=== PATIENT | male | born 1945 | race Caucasian/White ===

== ENCOUNTER 2018-09-22 05:09 | Emergency (ER) | payer OTHER ==
[2018-09-22] MEDS ORDERED: ONDANSETRON 4 MG/2 ML VIAL ONE (05:46)
[2018-09-22] MEDS ORDERED: NA CHLORIDE 0.9% 500 ML ONE (05:46)
[2018-09-22] MEDS ORDERED: MECLIZINE HCL 12.5 MG TAB ONE (05:46)
[2018-09-22] MEDS ORDERED: NA CHLORIDE 0.9% 1,000 ML ONE (05:46)
[2018-09-22 05:57] LABS: Absolute Lymphocytes (CBC) 2.4 K/uL (0.7-4.9); Absolute Monocytes 0.4 K/uL (0.1-1.3); Absolute Neutrophil 5.5 K/uL (1.8-8.0); Basophils % 1.1 % (0-1.3); Eosinophils % 2.5 % (0-4.4); Hematocrit 45.7 % (39.6-49.0); MPV 9.9 fL (7.6-11.3); Monocytes % 4.5 % (3.3-12.3); RBC Red Blood Cell Count 5.16 M/uL (4.33-5.43)
[2018-09-22 06:15] LABS: ALT/SGPT 26 U/L (12-78); AST/SGOT 16 U/L (15-37); Albumin 3.9 g/dL (3.4-5.0); Alkaline Phosphatase 97 U/L (45-117); BUN Blood Urea Nitrogen 14 mg/dL (7-18); Bicarbonate 28 mmol/L (21-32); Bilirubin Direct 0.1 mg/dL (0-0.2); Bilirubin Total 0.4 mg/dL (0.2-1.0); Glucose Level 137 mg/dL (74-106); Lipase 181 U/L (73-393); Magnesium 2.2 mg/dL (1.8-2.4); NT PRO-BNP 29 pg/mL (<125); Potassium 3.7 mmol/L (3.5-5.1); Protein, Total 7.7 g/dL (6.4-8.2); Sodium Level 143 mmol/L (136-145); Troponin (Emerg Dept Use Only) < 0.02 ng/mL (0.0-0.045)
[2018-09-22 06:54] LABS: Protime INR 0.97
--- NOTE | 2018-09-22 07:10 | RAD REPORT ---
EXAM DESCRIPTION: RAD - Chest Single View - 09/22/2018 6:10 am CLINICAL HISTORY: Cough COMPARISON: December 2010 TECHNIQUE: AP portable chest image was obtained 0539 hours . FINDINGS: No peripheral mass or consolidation. Interstitial markings are mildly prominent. Inspirato ry effort is decreased compared to 2010. Heart and vasculature are normal. No measurable pleural effu brad and no pneumothorax. No acute bony abnormality seen. No acute aortic findings suspected. IMPRESSION: No focal consolidation to indicate bacterial pneumonia. Right lung base markings are fractionally increased over the prior study. This could be an atelectasi s artifact from shallow inspiration or minimal viral infiltrate.
--- NOTE | 2018-09-22 08:20 | RAD REPORT ---
EXAM DESCRIPTION: - CP - 09/22/2018 7:09 am CLINICAL HISTORY: Dizziness, syncope COMPARISON: None. TECHNIQUE: Real-time sonographic evaluation of both carotid systems was performed. Ortiz scale and Do ppler interrogation were performed with waveform tracing bilaterally. FINDINGS: Normal high resistance waveforms are noted in both external carotid arteries. The common c arotid arteries and internal carotid arteries show normal low resistance waveforms. No significant plaque formation is seen. Peak systolic and end diastolic velocity values and the ICA/ CCA ratios are in the non-hemodynamically significant range. Antegrade flow seen in both vertebral arteries. Velocity values and ratios were recorded and are retained in the patient's imaging records. IMPRESSION: No significant atherosclerotic changes noted. No evidence of a hemodynamically significant stenosis.
--- NOTE | 2018-09-22 08:25 | ER ---
Nurse's Notes [facility] Name: Raman Rosario Age: 73 yrs Sex: Male : 1945 Arrival Date: 09/22/2018 Time: 05:10 Bed 5 Private MD: Román Monzon V Diagnosis: Nausea;Vertiginous syndromes in diseases classified elsewhere, unspecified ear Presentation: 09/22 05:21 Presenting complaint: Patient states: Pt states he woke up around 0230 AM feeling ea nauseous, pt reports the room was spinning when he was laying still in bed, vomited x1. Transition of care: patient was not received from another setting of care. Onset of symptoms was September 22, 2018. Risk Assessment: Do you want to hurt yourself or someone else? Patient reports no desire to harm self or others. Initial Sepsis Screen: Does the patient meet any 2 criteria? No. Patient's initial sepsis screen is negative. Does the patient have a suspected source of infection? No. Patient's initial sepsis screen is negative. Care prior to arrival: None. 05:21 Method Of Arrival: Wheelchair ea 05:21 Acuity: KEVIN 3 ea Triage Assessment: 05:27 General: Appears uncomfortable, Behavior is calm, cooperative, appropriate for age. ea Pain: Denies pain. EENT: No signs and/or symptoms were reported regarding the EENT system. Neuro: Level of Consciousness is awake, alert, obeys commands, Oriented to person, place, time, Reports dizziness, since 0230. Cardiovascular: Patient's skin is warm and dry. Respiratory: Airway is patent Respiratory effort is even, unlabored, Respiratory pattern is regular, symmetrical. GI: Reports nausea, vomiting. Derm: Skin is pink, warm \T\ dry. Historical: - Allergies: 05:26 PENICILLINS; ea - Home Meds: 05:26 levothyroxine oral [Active]; atorvastatin oral oral [Active]; ea - PMHx: 05:26 Thyroid problem; Hyperlipidemia; ea - Immunization history:: Adult Immunizations up to date. - Social history:: Smoking status: Patient uses tobacco products, smokes one-half pack cigarettes per day. - Ebola Screening: : No symptoms or risks identified at this time. - Family history:: pertinent for. Screenin:23 Abuse screen: Denies threats or abuse. Nutritional screening: No deficits noted. ea Tuberculosis screening: No symptoms or risk factors identified. Fall Risk None identified. Assessment: 05:28 Reassessment: see triage assessment. ea 06:15 Reassessment: Patient and/or family updated on plan of care and expected duration. Pain ea level reassessed. Patient is alert, oriented x 3, equal unlabored respirations, skin warm/dry/pink. Awaiting on CT results. 07:00 Reassessment: RECD REPORT FROM HEIDE HUBER. 73YO WM P/W DIZZINESS SINCE 0230. PT bp [place] NEGATIVE, NO FOCAL NEURO DEFICITS. CAROTID U/S IN PROCESS. RESULTS PENDING FOR DISPO. PT AO4 AND NEURO INTACT AT THIS TIME. 08:20 Reassessment: PER U/S, CAROTID UNREMARKABLE. PT ASYMPTOMATIC AT THIS TIME. bp 08:42 Reassessment: PT D/C HOME AMBULATORY WITH FAMILY, DX WITH NAUSEA AND VERTIGO. bp Vital Signs: 05:24 BP 129 / 71; Pulse 53; Resp 18; Temp 97.5(O); Pulse Ox 97% on R/A; Weight 77.11 kg; ea Height 5 ft. 9 in. (175.26 cm) (M); 06:45 BP 123 / 62; Pulse 63; Resp 18; Pulse Ox 97% ; ea 07:14 BP 151 / 79; Pulse 58; Resp 14; Pulse Ox 100% ; bp 08:20 BP 126 / 63; Pulse 61; Resp 14; Pulse Ox 97% ; bp 05:24 Body Mass Index 25.10 (77.11 kg, 175.26 cm) ea NIH Stroke Scale Scores: 05:29 NIHSS Score: 0 [facility] ED Course: 05:10 Patient arrived in ED. am2 05:10 Román Monzon MD is Private Physician. am2 05:16 Phi Purcell MD is Attending Physician. [facility] 05:20 Heide Osborn, RN is Primary Nurse. ea 05:23 Triage completed. ea 05:23 Patient has correct armband on for positive identification. Placed in gown. Bed in low ea position. Call light in reach. Side rails up X 1. 05:23 Arm band placed on right wrist. Patient placed in an exam room, on a stretcher, on ea pulse oximetry. 05:25 Initial lab(s) drawn, by me, sent to lab. Inserted saline lock: 20 gauge in right bb antecubital area, using aseptic technique. Blood collected. 06:10 X-ray completed. Portable x-ray completed in exam room. Patient tolerated procedure kw well. 06:10 Gigi Butts NP is PHCP. pm1 06:10 XRAY Chest (1 view) In Process Unspecified. EDMS 06:13 CT completed. Patient tolerated procedure well. Patient moved to CT via stretcher. Patient moved back from CT. 06:20 CT Head C Spine In Process Unspecified. EDMS 07:04 Report given to Sourav HUBER. ea 07:06 US Carotid Artery Bilateral In Process Unspecified. EDMS 08:24 Román Monzon MD is Referral Physician. pm1 08:42 No provider procedures requiring assistance completed. IV discontinued, intact, bp bleeding controlled, No redness/swelling at site. Pressure dressing applied. Administered Medications: 05:15 Drug: NS 0.9% 1000 ml Route: IV; Rate: 125 ml/hr; Site: right forearm; ea 08:44 Follow up: IV Status: Completed infusion; IV Intake: 500ml bp 05:15 Drug: Zofran 4 mg Route: IVP; Site: right forearm; ea 06:49 Follow up: Response: No adverse reaction; Nausea is decreased ea 05:15 Drug: NS 0.9% 500 ml Route: IV; Rate: bolus; Site: right forearm; ea 06:00 Follow up: IV Status: Completed infusion; IV Intake: 500ml bp 05:47 Drug: Meclizine 50 mg Route: PO; ea 06:48 Follow up: Response: No adverse reaction ea Intake: 06:00 IV: 500ml; Total: 500ml. bp 08:44 IV: 500ml; Total: 1000ml. bp Outcome: 08:24 Discharge ordered by . pm1 08:43 Discharged to home ambulatory, with family. bp 08:43 Condition: stable 08:43 Discharge instructions given to patient, Instructed on discharge instructions, follow up and referral plans. medication usage, Demonstrated understanding of instructions, follow-up care, medications, Prescriptions given X 2. 08:45 Patient left the ED. bp NIH Stroke Scale - NIH Stroke Score Date: 09/22/2018 Time: 05:29 Total Score = 0 1a. Level of Consciousness (LOC) - 0(Alert) 1b. Level of Consciousness (LOC) (Year \T\ Age) - 0(Both) 1c. LOC Commands (Open \T\ Closes Eyes/Japanese Professor) - 0(Both) 2. Best Gaze (Lateral Gaze Paresis) - 0(Normal) 3. Visual Field Loss - 0(No visual loss) 4. Facial Palsy - 0(Normal) 5a. Left Arm: Motor (10-second hold) - 0(No drift) 5b. Right Arm: Motor (10-second hold) - 0(No drift) 6a. Left Leg: Motor (5-second hold - always test supine) - 0(No drift) 6b. Right Leg: Motor (5-second hold - always test supine) - 0(No drift) 7. Limb Ataxia (finger/nose \T\ heel/kang - test with eyes open) - 0(Absent) 8. Sensory Loss (pinprick arms/legs/face) - 0(Normal) 9. Best Language: Aphasia (description/naming/reading) - 0(No aphasia) 10. Dysarthria (speech clarity - read or repeat words) - 0(Normal) 11. Extinction and Inattention (visual/tactile/auditory/spatial/personal) - 0(No abnormality) Initials: alhaji Signatures: Dispatcher [employer] EDMS Phi Purcell MD MD cha Hagler, Ervin eh Ballard, Brenda, RN RN Precious Franklin Patrick, NP EYE TECHNICIAN pm1 Blossom Lawler am2 Heide Osborn RN RN ea Peltier, Brian, RN RN bp
--- NOTE | 2018-09-22 08:25 | EDPHYS ---
Physician Documentation [facility] Name: Raman Rosario Age: 73 yrs Sex: Male : 1945 Arrival Date: 09/22/2018 Time: 05:10 Bed 5 Private MD: Román Monzon V ED Physician Phi Purcell HPI: 09/22 05:29 This 73 yrs old Male presents to ER via Wheelchair with complaints of Nausea, alhaji Dizziness. 05:29 The patient presents to the emergency department with nausea. alhaji Historical: - Allergies: 05:26 PENICILLINS; ea - Home Meds: 05:26 levothyroxine oral [Active]; atorvastatin oral oral [Active]; ea - PMHx: 05:26 Thyroid problem; Hyperlipidemia; ea - Immunization history:: Adult Immunizations up to date. - Social history:: Smoking status: Patient uses tobacco products, smokes one-half pack cigarettes per day. - Ebola Screening: : No symptoms or risks identified at this time. - Family history:: pertinent for. ROS: 05:29 Constitutional: Negative for fever, chills, and weight loss, Eyes: Negative for injury, alhaji pain, redness, and discharge, ENT: Negative for injury, pain, and discharge, Neck: Negative for injury, pain, and swelling, Cardiovascular: Negative for chest pain, palpitations, and edema, Respiratory: Negative for shortness of breath, cough, wheezing, and pleuritic chest pain, Abdomen/GI: Negative for abdominal pain, nausea, vomiting, diarrhea, and constipation, Back: Negative for injury and pain, : Negative for injury, bleeding, discharge, and swelling, MS/Extremity: Negative for injury and deformity, Skin: Negative for injury, rash, and discoloration, Psych: Negative for depression, anxiety, suicide ideation, homicidal ideation, and hallucinations, Allergy/Immunology: Negative for hives, rash, and allergies, Endocrine: Negative for neck swelling, polydipsia, polyuria, polyphagia, and marked weight changes, Hematologic/Lymphatic: Negative for swollen nodes, abnormal bleeding, and unusual bruising. 05:29 Neuro: Positive for dizziness. Exam: 05:29 Constitutional: This is a well developed, well nourished patient who is awake, alert, alhaji and in no acute distress. Head/Face: Normocephalic, atraumatic. Eyes: Pupils equal round and reactive to light, extra-ocular motions intact. Lids and lashes normal. Conjunctiva and sclera are non-icteric and not injected. Cornea within normal limits. Periorbital areas with no swelling, redness, or edema. ENT: Nares patent. No nasal discharge, no septal abnormalities noted. Tympanic membranes are normal and external auditory canals are clear. Oropharynx with no redness, swelling, or masses, exudates, or evidence of obstruction, uvula midline. Mucous membranes moist. Neck: Trachea midline, no thyromegaly or masses palpated, and no cervical lymphadenopathy. Supple, full range of motion without nuchal rigidity, or vertebral point tenderness. No Meningismus. Chest/axilla: Normal chest wall appearance and motion. Nontender with no deformity. No lesions are appreciated. Cardiovascular: Regular rate and rhythm with a normal S1 and S2. No gallops, murmurs, or rubs. Normal PMI, no JVD. No pulse deficits. Respiratory: Lungs have equal breath sounds bilaterally, clear to auscultation and percussion. No rales, rhonchi or wheezes noted. No increased work of breathing, no retractions or nasal flaring. Abdomen/GI: Soft, non-tender, with normal bowel sounds. No distension or tympany. No guarding or rebound. No evidence of tenderness throughout. Back: No spinal tenderness. No costovertebral tenderness. Full range of motion. Skin: Warm, dry with normal turgor. Normal color with no rashes, no lesions, and no evidence of cellulitis. MS/ Extremity: Pulses equal, no cyanosis. Neurovascular intact. Full, normal range of motion. Neuro: Awake and alert, GCS 15, oriented to person, place, time, and situation. Cranial nerves II-XII grossly intact. Motor strength 5/5 in all extremities. Sensory grossly intact. Cerebellar exam normal. Normal gait. Psych: Awake, alert, with orientation to person, place and time. Behavior, mood, and affect are within normal limits. 05:29 Neck: External neck: is normal, no acute changes, ROM/movement: is normal, no acute changes, Meningeal signs: are not present, Kernig's sign is negative, Brudzinski's sign is negative. 05:29 Musculoskeletal/extremity: DVT Exam: No signs of deep vein thrombosis. no pain, no swelling, no tenderness, negative Homans' sign noted on exam, no appreciated bluish discoloration, no erythema, no increased warmth. 06:10 ECG was reviewed by the Attending Physician. Sinus bradycardia 52 BPM pm1 Vital Signs: 05:24 BP 129 / 71; Pulse 53; Resp 18; Temp 97.5(O); Pulse Ox 97% on R/A; Weight 77.11 kg; ea Height 5 ft. 9 in. (175.26 cm) (M); 06:45 BP 123 / 62; Pulse 63; Resp 18; Pulse Ox 97% ; ea 07:14 BP 151 / 79; Pulse 58; Resp 14; Pulse Ox 100% ; bp 08:20 BP 126 / 63; Pulse 61; Resp 14; Pulse Ox 97% ; bp 05:24 Body Mass Index 25.10 (77.11 kg, 175.26 cm) ea NIH Stroke Scale Scores: 05:29 NIHSS Score: 0 alhaji MDM: 05:16 Patient medically screened. alhaji 05:31 Data reviewed: vital signs, nurses notes, lab test result(s), EKG, radiologic studies, alhaji CT scan, doppler, plain films. 08:24 Data interpreted: Pulse oximetry: on room air is 97 %. Interpretation: normal. pm1 Counseling: I had a detailed discussion with the patient and/or guardian regarding: the historical points, exam findings, and any diagnostic results supporting the discharge/admit diagnosis, lab results, radiology results, the need for outpatient follow up, to return to the emergency department if symptoms worsen or persist or if there are any questions or concerns that arise at home. 09/22 05:17 Order name: Basic Metabolic Panel [facility] 09/22 05:17 Order name: CBC with Diff; Complete Time: 06:11 [facility] 09/22 05:17 Order name: LFT's; Complete Time: 07:34 [facility] 09/22 05:17 Order name: Magnesium; Complete Time: 07:34 [facility] 09/22 05:17 Order name: NT PRO-BNP; Complete Time: 07:34 [facility] 09/22 05:17 Order name: PT-INR; Complete Time: 07:34 [facility] 09/22 05:17 Order name: Troponin (emerg Dept Use Only); Complete Time: 07:34 [facility] 09/22 05:17 Order name: XRAY Chest (1 view); Complete Time: 07:34 [facility] 09/22 05:17 Order name: Lipase; Complete Time: 07:34 [facility] 09/22 05:18 Order name: Basic Metabolic Panel; Complete Time: 07:34 EDMS 09/22 05:29 Order name: CT Head C Spine [facility] 09/22 05:29 Order name: US Carotid Artery Bilateral; Complete Time: 08:21 alhaji 09/22 05:17 Order name: EKG; Complete Time: 05:18 [facility] 09/22 05:17 Order name: Cardiac monitoring; Complete Time: 05:28 [facility] 09/22 05:17 Order name: EKG - Nurse/Tech; Complete Time: 05:27 alhaji 09/22 05:17 Order name: IV Saline Lock; Complete Time: 05: [facility] 09/22 05:17 Order name: Labs collected and sent; Complete Time: 05:28 [facility] 09/22 05:17 Order name: O2 Per Protocol; Complete Time: 05:28 [facility] 09/22 05:17 Order name: O2 Sat Monitoring; Complete Time: 05:29 [facility] Administered Medications: 05:15 Drug: NS 0.9% 1000 ml Route: IV; Rate: 125 ml/hr; Site: right forearm; ea 08:44 Follow up: IV Status: Completed infusion; IV Intake: 500ml bp 05:15 Drug: Zofran 4 mg Route: IVP; Site: right forearm; ea 06:49 Follow up: Response: No adverse reaction; Nausea is decreased ea 05:15 Drug: NS 0.9% 500 ml Route: IV; Rate: bolus; Site: right forearm; ea 06:00 Follow up: IV Status: Completed infusion; IV Intake: 500ml bp 05:47 Drug: Meclizine 50 mg Route: PO; ea 06:48 Follow up: Response: No adverse reaction ea Disposition: 15:36 Co-signature as Attending Physician, Phi Purcell MD I agree with the assessment and [facility] plan of care. Disposition: 09/22/18 08:24 Discharged to Home. Impression: Nausea, Vertiginous syndromes in diseases classified elsewhere, unspecified ear. - Condition is Stable. - Discharge Instructions: Dizziness, Vertigo, Vertigo, [id number], Aspirin and Your Heart, Dizziness, [id number]. - Prescriptions for Meclizine 25 mg Oral Tablet - take 1 tablet by ORAL route every 8 hours As needed; 30 tablet. Zofran 4 mg Oral Tablet - take 1 tablet by ORAL route every 12 hours As needed; 20 tablet. - Medication Reconciliation Form, Thank You Letter, Antibiotic Education, Prescription Opioid Use form. - Follow up: Román Monzon; When: 2 - 3 days; Reason: Recheck today's complaints, Continuance of care, Re-evaluation by your physician. - Problem is new. - Symptoms have improved. NIH Stroke Scale - NIH Stroke Score Date: 09/22/2018 Time: 05:29 Total Score = 0 1a. Level of Consciousness (LOC) - 0(Alert) 1b. Level of Consciousness (LOC) (Year \T\ Age) - 0(Both) 1c. LOC Commands (Open \T\ Closes Eyes/Securities Analyst) - 0(Both) 2. Best Gaze (Lateral Gaze Paresis) - 0(Normal) 3. Visual Field Loss - 0(No visual loss) 4. Facial Palsy - 0(Normal) 5a. Left Arm: Motor (10-second hold) - 0(No drift) 5b. Right Arm: Motor (10-second hold) - 0(No drift) 6a. Left Leg: Motor (5-second hold - always test supine) - 0(No drift) 6b. Right Leg: Motor (5-second hold - always test supine) - 0(No drift) 7. Limb Ataxia (finger/nose \T\ heel/kang - test with eyes open) - 0(Absent) 8. Sensory Loss (pinprick arms/legs/face) - 0(Normal) 9. Best Language: Aphasia (description/naming/reading) - 0(No aphasia) 10. Dysarthria (speech clarity - read or repeat words) - 0(Normal) 11. Extinction and Inattention (visual/tactile/auditory/spatial/personal) - 0(No abnormality) Initials: alhaji Signatures: Dispatcher [employer] EDPhi Donato MD MD cha Marinas, Patrick, DIGITAL MARKETING MANAGER DIGITAL MARKETING MANAGER pm1 Heide Osborn, RN Sourav Simmons ea, RN RN bp Corrections: (The following items were deleted from the chart) 08:35 05:17 Urine Dipstick-Ancillary ordered. alhaji aaTri 08:38 05:18 Urine Culture+BA.LAB.BRZ ordered. EDMS EDMS 08:45 08:24 09/22/2018 08:24 Discharged to Home. Impression: Nausea; Vertiginous bp syndromes in diseases classified elsewhere, unspecified ear. Condition is Stable. Discharge Instructions: Dizziness, Vertigo, Vertigo, [id number], Aspirin and Your Heart, Dizziness, [id number]. Prescriptions for Meclizine 25 mg Oral Tablet - take 1 tablet by ORAL route every 8 hours As needed; 30 tablet, Zofran 4 mg Oral Tablet - take 1 tablet by ORAL route every 12 hours As needed; 20 tablet. and Forms are Medication Reconciliation Form, Thank You Letter, Antibiotic Education, Prescription Opioid Use. Follow up: Román Monzon; When: 2 - 3 days; Reason: Recheck today's complaints, Continuance of care, Re-evaluation by your physician. Problem is new. Symptoms have improved. pm1
--- NOTE | 2018-09-22 09:02 | EKG ---
Test Date: 2018-09-22 Test Time: 05:21:16 Family Health Nurse Practitioner: CRESCENCIO MEASUREMENT RESULTS: Intervals: Rate: 52 NE: 168 QRSD: 94 QT: 438 QTc: 407 [place]: P: 32 NE: 168 QRS: 40 T: 55 INTERPRETIVE STATEMENTS: Sinus bradycardia Possible Left atrial enlargement Borderline ECG Compared to ECG 12/05/2010 09:44:30 No significant changes Electronically Signed On 09-22-18 09:01:23 CDT by Mk Christie
--- NOTE | 2018-09-22 10:36 | RAD REPORT ---
EXAM DESCRIPTION: CT - Head C Spine Mpr Wo Con - 09/22/2018 6:45 am CLINICAL HISTORY: The patient is 73 years old and is Male; PAIN TECHNIQUE: Axial computed tomography images of the head/brain and cervical spine without intravenous contrast. Sagittal and coronal reformatted images were created and reviewed. This CT exam was pe rformed using one or more of the following dose reduction techniques: automated exposure control, a djustment of the mA and/or kV according to patient size, and/or use of iterative reconstruction techn ique. COMPARISON: No relevant prior studies available. FINDINGS: Brain: Periventricular and deep white matter hypodensities, most commonly due to nonspec [facility] white matter chronic microvascular ischemia. Mild cerebral atrophy. No hemorrhage. Ventricles: Unremarkable. No ventriculomegaly. Skull: No acute fracture. Sinuses: Unremarkable as visualized. No acute sinusitis. Mastoid air cells: Unremarkable as visualized. No mastoid effusion. Vertebrae: Mild spine degenerative changes with disc height loss, similar formation and facet ar throsis, pronounced at C5-6 and C6/7. No acute fracture. Normal alignment. Discs/spinal canal/neural foramina: No acute findings. No spinal canal stenosis. Soft tissues: Unremarkable. Vasculature: Vascular calcifications. IMPRESSION: 1. No acute intracranial findings. Mild cerebral atrophy and nonspecific chronic micro vascular ischemic changes. 2. No acute spine abnormality. No fracture or subluxation. Mild spine degenerative changes. Electronically signed by: Cristhian Montano MD 09/22/2018 6:26 AM CDT Due to temporary technical issues with the PACS/Fluency reporting system, reports are being signed by the in house radiologist as a courtesy to ensure prompt reporting. The interpreting radiologist is f ully responsible for the content of the report.
== END 2018-09-22 08:45 | disposition home or self-care (01) ==
LOC: ER 05:09
DX: R11.0 Nausea (principal); H82.9 Vertiginous syndromes in diseases classified elsewhere, unspecified ear; E07.9 Disorder of thyroid, unspecified; E78.5 Hyperlipidemia, unspecified; F17.210 Nicotine dependence, cigarettes, uncomplicated; Z88.0 Allergy status to penicillin
CPT/HCPCS: 96361; 93005; 85025; 80048; 36415; 83735; 85610; 80076; 84484; 83690; 83880; 70450; 72125; 71045; 93880; 96374; 99284; J7030; J2405